=== PATIENT | male | born 1960 | race Caucasian/White ===

== ENCOUNTER 2019-04-23 05:43 | Day surgery (SDC) | payer OTHER ==
[~2019-04-23 05:43] MED LIST: ALLOPURINOL100 MG PO; ATORVASTATIN CA20 MG PO; FENOFIBRATE200 MG PO; SERTRALINE HCL100 MG PO
[2019-04-23] MEDS ORDERED: PERCOCET 5-3251 EACH PO (07:35)
[2019-04-23] MEDS ORDERED: COLACE100 MG PO (07:35)
== END 2019-04-23 12:35 | disposition home or self-care (01) ==
LOC: CIR.AMB 05:43
DX: K64.8 Other hemorrhoids (principal)